=== PATIENT | female | born 1950 | race Two or more races ===

== ENCOUNTER 2017-11-27 07:41 | Day surgery (SDC) | payer MEDICARE, OTHER ==
[2017-11-27] VITALS (8 sets, daily range): BP systolic 102–112; BP diastolic 42–65
[~2017-11-27] VITALS: Ht 172.7 cm; Wt 72.6 kg
--- NOTE | 2017-11-27 | Pre-op HX & Phy Repo 2 SIG ---
DATE OF ADMISSION: 11/27/2017 DATE OF SURGERY: 11/27/2017. PREOPERATIVE DIAGNOSIS: Vitreous opacification, left eye. BRIEF NOTE: This is the first [facility] admission for the patient, who is a very nice 67-year-old lady, who complains disturbing floaters in the left eye. Her past ocular history is remarkable for a vitreous hemorrhage in the left eye that was treated at [facility] sometime ago. Subsequent to this, the hemorrhage cleared except for a very large opacification in the mid vitreous that has caused her system problems. She was observed for a time, but has difficulty with reading on this side because of the floater and is admitted for vitrectomy on that side with exploration to look for sources of the vitreous hemorrhage. PAST MEDICAL HISTORY: Remarkable for elevated cholesterol, hepatitis B, and fibromyalgia. PAST SURGICAL HISTORY: She had lower lid blepharoplasties in 2002. ALLERGIES: She has no known allergies. SOCIAL HISTORY: She does not smoke. PHYSICAL EXAMINATION: Best vision at the time of admission was 20/40 in the right eye and 20/30 in the left with pressures of 16. The anterior segments showed nuclear sclerotic cataract, slightly worse on the right. Fundus examination of the right eye showed a vitreous separation. 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 The left fundus showed a very large irregular floater in the posterior third of the vitreous partially obscuring the optic nerve and freely mobile toward the posterior pole. No specific retinal tears were seen. Paving-stone degeneration was seen down below, but no definite breaks. There were no retinal vascular issues appreciated. General physical examination will be done by Dr. Lindsay. ASSESSMENT: Residual significant floater, left eye, status post idiopathic vitreous hemorrhage. PLAN: The plan is to perform a pars plana vitrectomy with exploration of the periphery and application of laser as needed. The risks and benefits of surgery gone over the patient with potential for retinal detachment, infection, progression of the cataract, and remote possibility of loss of the eye. The risk of anesthesia was discussed. The patient understands and consents to the surgery to be performed tomorrow morning. Butch Alva M.D. DR: STEPHON JOB#: [id number] CC:
--- NOTE | 2017-11-27 07:39 | Pre-Procedure Note/Attestation ---
Pre-Procedure Note/Attestation Complete Prior to Procedure Planned Procedure: left Procedure Narrative: PPV, possible endolaser Left eye Indications for Procedure Pre-Operative Diagnosis: Vitreous opacity post vitreous hemorrhage Left eye. Peripheral lattice degeneration Attestation I attest that I discussed the nature of the procedure; its benefits; risks and complications; and alternatives (and the risks and benefits of such alternatives ), prior to the procedure, with the patient (or the patient's legal phlebotomy services representative). I attest that, if there was a reasonable possibility of needing a blood transfusion, the patient (or the patient's legal phlebotomy services representative) was given the [place] Department of [employer] Services standardized written summary, pursuant to the [place] Blood Safety Act ([place] Health and Safety Code # 1645, as amended). I attest that I re-evaluated the patient just prior to the surgery and that there has been no change in the patient's H&P, except as documented below: EDISON TALBERT Nov 27, 2017 07:39
[~2017-11-27 07:41] MED LIST: BSS 15ml BTL ONE; BSS 500ml btl ONE; Bupivacaine 0.75% 30ml vial INJ ONE; Dexamethasone 4mg/ml vial ONE; EPINEPHrine 1mg/1ml Amp ONE; Lidocaine 2% MPF 5ml Vial INJ ONE; Maxitrol Opth Oint 3.5gm ONE; Povidone-Iodine 5% opth solution ONE; Pred Forte 1% Opth Susp 1ml LEFT EYE SCH; Pred Forte 1% Opth Susp 1ml ONE; Sodium Hyaluronate 10 mg/ml 0.85ml ONE; Tetracaine 0.5% Opth 4ml Soln ONE
[2017-11-27] MEDS ORDERED: Norco 5mg/325mg tab ORAL PRN (07:45)
[2017-11-27] MEDS: Vigamox Opth Soln 3ml LEFT EYE SCH ×3 (08:11→08:28)
[2017-11-27] MEDS: Phenylephrine 2.5% Op 2ml Soln LEFT EYE SCH ×3 (08:12→08:28)
[2017-11-27] MEDS: Cyclopentolate 1% Opth Sol 2ml LEFT EYE SCH ×3 (08:12→08:29)
[2017-11-27] MEDS: Flurbiprofen 0.03% Opth Sol 2.5ml LEFT EYE SCH ×3 (08:12→08:29)
[2017-11-27 08:27] LABS: BASOPHILS % (AUTO) 0.9 % (0.0-2.0); EOSINOPHILS % (AUTO) 1.6 % (0.0-3.0); HEMATOCRIT 35.6 % (37.0-47.0); HEMOGLOBIN 12.6 G/DL (12.0-16.0); MEAN CORPUSCULAR VOLUME 84 FL (80-99); MONOCYTES % (AUTO) 7.1 % (1.0-10.0); NEUTROPHILS % (AUTO) 47.4 % (45.0-75.0); PLATELET COUNT 258 K/UL (150-450); RED BLOOD COUNT 4.22 M/UL (4.20-5.40); RED CELL DISTRIBUTION WIDTH 12.1 % (11.6-14.8); WHITE BLOOD COUNT 7.9 K/UL (4.8-10.8)
[2017-11-27] MEDS ORDERED: VITAMIN D1000 UNI2 PO (08:39)
--- NOTE | 2017-11-27 08:41 | Anethesia Preoperative Eval ---
Anesthesia Pre-op PMH/ROS General Date of Evaluation: Nov 27, 2017 Time of Evaluation: 09:16 Anesthesiologist: Lizzeth ASA Score: ASA 2 Mallampati Score Class I : Soft palate, uvula, fauces, pillars visible Class II: Soft palate, uvula, fauces visible Class III: Soft palate, base of uvula visible Class IV: Only hard plate visible Mallampati Classification: Class II Surgeon: Artie Diagnosis: virteous floaters Surgical Procedure: pars plana vitrectomy endolaser left eye Anesthesia History: none Family History: no anesthesia problems Allergies: Coded Allergies: No Known Allergies (Unverified , 11/27/17) Medications: see eMAR Patient NPO?: Yes NPO Date: Nov 26, 2017 NPO Time: 20:00 Past Medical History Cardiovascular: Reports: other - hypercholosterol HEENT: Reports: cataract (L), cataract (R) Musculoskeletal/Integumentary: Reports: other - fibromyalgia PSxH Narrative: Bilateral breast augmentation Anesthesia Pre-op Phys. Exam Physician Exam Last Vital Signs Date Time Temp Pulse Resp B/P (MAP) Pulse Ox O2 Delivery O2 Flow Rate FiO2 11/27/17 08:35 97.6 62 18 102/65 98 Room Air 97.6 Constitutional: NAD Neurologic: CN 2-12 intact Cardiovascular: RRR Respiratory: CTA Gastrointestinal: S/NT/ND Airway Exam Mallampati Score: Class II MO: full ROM: full Teeth: intact Anesthesia Pre-op A/P Labs Hematology Test 11/27/17 08:17 White Blood Count 7.9 K/UL (4.8-10.8) Red Blood Count 4.22 M/UL (4.20-5.40) Hemoglobin 12.6 G/DL (12.0-16.0) Hematocrit 35.6 % (37.0-47.0) L Mean Corpuscular Volume 84 FL (80-99) Mean Corpuscular Hemoglobin 30.0 PG (27.0-31.0) Mean Corpuscular Hemoglobin Concent 35.5 G/DL (32.0-36.0) Red Cell Distribution Width 12.1 % (11.6-14.8) Platelet Count 258 K/UL (150-450) Mean Platelet Volume 8.8 FL (6.5-10.1) Neutrophils (%) (Auto) 47.4 % (45.0-75.0) Lymphocytes (%) (Auto) 43.0 % (20.0-45.0) Monocytes (%) (Auto) 7.1 % (1.0-10.0) Eosinophils (%) (Auto) 1.6 % (0.0-3.0) Basophils (%) (Auto) 0.9 % (0.0-2.0) Chemistry Test 11/27/17 08:17 Sodium Level Pending Potassium Level Pending Chloride Level Pending Carbon Dioxide Level Pending Blood Urea Nitrogen Pending Creatinine Pending Estimat Glomerular Filtration Rate Pending Glucose Level Pending Calcium Level Pending Studies Pre-op Studies: EKG - NSB 59 bpm Risk Assessment & Plan Assessment: A&Ox3 Plan: plan discussed with LUCI ABRAMS Status Change Before Surgery: No Pre-Antibiotics Given Within 1 Hr of Incision: No Grazyna Moreau CRNA Nov 27, 2017 08:41
[2017-11-27 08:52] LABS: ANION GAP 10 mmol/L (5-15); BLOOD UREA NITROGEN 28 mg/dL (7-18); CALCIUM 8.7 MG/DL (8.5-10.1); CARBON DIOXIDE 23 MMOL/L (21-32); CHLORIDE 106 MMOL/L (98-107); CREATININE 1.3 MG/DL (0.55-1.30); POTASSIUM 4.2 MMOL/L (3.5-5.1); SODIUM 139 MMOL/L (136-145)
[2017-11-27] MEDS ORDERED: Kenalog-40 1ml Vial ONE (08:59)
[2017-11-27] MEDS ORDERED: Kenalog-10 5ml Inj ONE (08:59)
[2017-11-27] MEDS ORDERED: LR 1000ml ONE (09:00)
[2017-11-27] MEDS ORDERED: NS Irrig 1000ml ONE (09:00)
[2017-11-27] MEDS ORDERED: Sterile Water Irrig 1000ml IRRIG ONE (09:00)
[2017-11-27] MEDS ORDERED: fentaNYL 100 mcg/2 mL IV ONE (09:08)
[2017-11-27] MEDS ORDERED: Midazolam 2mg/2ml Inj ONE (09:08)
[2017-11-27] MEDS ORDERED: Propofol 200mg/20ml IV ONE (09:08)
--- NOTE | 2017-11-27 10:21 | Brief Operative Note ---
Immediate Post Operative Note Operative Note Chief Complaint: Dense floater OS Pre-op Diagnosis: Vitreous opacity post vitreous hemorrhage Left eye. Peripheral lattice degeneration Procedure: PPV OS Post-op Diagnosis: Same as pre-op Post-op Diagnosis: same as pre-op Surgeon: mejia Anesthesiologist: aleah Anesthesia: MAC Specimen: none Complications: none Condition: stable Fluids: none Estimated Blood Loss: none Drains: none Packing: none Implant(s) used?: No EDISON TALBERT Nov 27, 2017 10:21
--- NOTE | 2017-11-27 10:31 | Immediate Post-Op Evaluation ---
Immediate Post-Op Evalulation Immediate Post-Op Evalulation Procedure: left eye posterior vitrectomy Date of Evaluation: Nov 27, 2017 Time of Evaluation: 10:04 IV Fluids: LR 450 ml Blood Products: 0 Estimated Blood Loss: 0 Urinary Output: no yip Blood Pressure Systolic: 112 Blood Pressure Diastolic: 46 Pulse Rate: 62 Respiratory Rate: 16 O2 Sat by Pulse Oximetry: 98 Temperature (Fahrenheit): 97 Pain Score (1-10): 0 Nausea: No Vomiting: No Complications none Patient Status: awake, reacts Hydration Status: adequate Drug: none per surgeon Given Within 1 Hr of Incision: No Grazyna Moreau CRNA Nov 27, 2017 10:31
--- NOTE | 2017-11-27 10:35 | 48 Hour Post Anesthesia Eval ---
Post Anesthesia Evaluation Procedure: left eye posterior vitrectomy Date of Evaluation: Nov 27, 2017 Time of Evaluation: 10:31 Blood Pressure Systolic: 105 0: 50 Pulse Rate: 63 Respiratory Rate: 17 Temperature (Fahrenheit): 97 O2 Sat by Pulse Oximetry: 95 Airway: patent Nausea: No Vomiting: No Pain Intensity: 0 Hydration Status: adequate Cardiopulmonary Status: WNL Mental Status/LOC: patient returned to baseline Post-Anesthesia Complications: none Follow-up care needed: patient intructions given Grazyna Moreau CRNA Nov 27, 2017 10:35
--- NOTE | 2017-11-27 21:00 | Operative Note - Dictated ---
DATE OF OPERATION: 11/27/2017 PREOPERATIVE DIAGNOSIS: Dense vitreous floater, left eye. POSTOPERATIVE DIAGNOSIS: Dense vitreous floater, left eye. PROCEDURES: Pars plana vitrectomy, left eye. SURGEON: Butch Alva M.D. ASSISTANT PROFESSOR OF THEATER: None. ANESTHESIOLOGIST: , EDUARDO. JUSTIFICATION FOR SURGERY: This is a 67-year-old lady who developed a vitreous hemorrhage a year ago, which cleared except for massive central floater. She was admitted for vitrectomy. BRIEF NOTE: The patient was brought to the operative room and placed on the OR table in supine position. After a time-out was performed and agreed upon by the staff and initial monitoring secured by anesthesia, retrobulbar and Van Lint block were given in the standard way to the left eye. after the blocks taken effect, she was prepped and draped in a normal manner. A lid speculum was inserted into the left eye. Using a 23-gauge trocar system, cannulas were placed in all except infranasal quadrant. Infusion secured inferotemporally. Vitrectomy was begun posterior to the lens taking care to avoid contact. A central core vitrectomy was done followed by peripheral vitrectomy leaving a small vitreous skirt. The posterior hyaloid had previously and this was removed. Upon completion, scleral depression was done and no peripheral breaks, tears, or detachments were seen. An area of cobblestone degeneration was seen inferonasally but no tears associated with this. The instruments were removed from the eye and after vitreous toilet at each sclerotomy these were closed with 8-0 Vicryl suture with the knots buried. Subconjunctival Decadron and gentamicin were then injected. Maxitrol and atropine ointments were instilled. The eye was patched and shielded. The patient taken to recovery in excellent condition. There were no complications. Butch Alva M.D. DR: Pam JOB#: [id number] CC: Butch Alva M.D.; Fax#: [phone]
--- NOTE | 2017-11-28 13:25 | Cardiology Report ---
APPROVED REPORT EKG Measurement Heart [id number] Sinus bradycardia Otherwise normal ECG
--- NOTE | 2017-12-02 11:15 | Pre-op HX & Phy Repo 2 SIG ---
DATE OF ADMISSION: 11/27/2017 PRESURGICAL INTERNAL MEDICINE HISTORY AND PHYSICAL DATE OF EVALUATION: 11/27/2017. REASON FOR EVALUATION: I was asked by Dr. Butch Alva to see this 67-year-old female, who going for elective surgery on left eye. The patient has vitreous floater, left eye. The patient was evaluated at [place] outpatient department. Chart was reviewed. PAST MEDICAL HISTORY/REVIEW OF SYSTEMS: Remarkable. Denies history of chest pain, palpitation, or heart attack. No history of hypertension or diabetes. No history of stroke or seizures. No Parkinson disease. Denies history of respiratory problem, asthma or bronchitis. The patient has history of low back pain secondary to disc disease. No thyroid problem. No renal failure. No GI bleeding. PAST SURGICAL HISTORY: Unknown. FAMILY HISTORY: Mother alive, has a stroke and father from complication of stroke. ALLERGIES: Not known. PRESENT MEDICATIONS: Include vitamin D weekly. HABITS: Denies history of alcohol, street drugs, or smoking. PHYSICAL EXAMINATION: GENERAL: Alert, well-developed, well-nourished female, in her 60s. No acute distress. VITAL SIGNS: Blood pressure 102/65, temperature 97.6, pulse 62, respirations 18, and O2 saturation 98% on room air. SKIN: Warm, dry, and clear. No rashes. No diaphoresis. No lymph node enlargement. HEENT: Head, normocephalic, atraumatic. Ears, clear. Eyes, full description per Dr. Butch Alva. Mouth, moist and clear. No dentures. NECK: No jugular vein distention. Carotids artery +2. Trachea midline. CHEST: No deformity or asymmetry. No palpable mass. LUNGS: No rales or rhonchi. HEART: Sinus bradycardia 59 per minute. No murmur. No S3, S4. ABDOMEN: Soft. No rebound. No palpable mass. Liver and spleen not enlarged. EXTREMITIES: No edema. No varicose vein. No calf tenderness. GENITOURINARY TRACT: CVA nontender. No dysuria. NEUROLOGIC: No tremor. No nystagmus. DIAGNOSTIC AND LABORATORY DATA: ECG, sinus bradycardia 59 per minute, otherwise normal ECG. Lab work, white blood cells 7.9, hemoglobin 12.6, hematocrit 35. The patient is NPO after midnight. IMPRESSION: 1. Vitreous floater, left eye. 2. Low back pain. PLAN: Pars plana vitrectomy, endolaser, left eye per Dr. Butch Alva. CONCLUSION: The patient is a 67-year-old female, has history of low back pain. Otherwise, no hypertension or diabetes. No chest pain. No lung problem. EKG, sinus bradycardia 59, otherwise normal. The patient did not eat or drink after midnight. The patient's condition optimized for surgery. Thank you very much Dr. Alva, for privilege to participate in presurgical care of this interesting patient. Rima Lindsay M.D. DR: RAGHAV JOB#: [id number] CC:
== END 2017-11-27 11:30 | disposition home or self-care (01) ==
LOC: SUR 07:41
DX: H43.392 Other vitreous opacities, left eye (principal); E78.00 Pure hypercholesterolemia, unspecified; M79.7 Fibromyalgia; R00.1 Bradycardia, unspecified; Z86.19 Personal history of other infectious and parasitic diseases
CPT/HCPCS: 36415; 67036; 80048; 85025; 93005; J0171; J1100; J2250; J2704; J3470; J3490; 94003; 94150